=== PATIENT | female | born 1950 | race Caucasian/White ===

== ENCOUNTER 2017-10-10 17:09 | Emergency (ER) | payer OTHER ==
[~2017-10-10] VITALS: Ht 162.6 cm; Wt 72.6 kg
[2017-10-10] MEDS ORDERED: SYNTHROID150 MCG PO (17:17)
[2017-10-10 18:16] LABS: ABSOLUTE NEUTROPHILS 11.2 thou/uL (1.4-8.2); BASOPHILS 0.8 % (0.0-2.0); EOSINOPHILS 0.4 % (0.0-3.0); HEMATOCRIT 51.1 % (37.0-47.0); HEMOGLOBIN 17.6 gm/dL (12.0-15.0); LYMPHOCYTES 7.7 % (24.0-44.0); MCH 30.1 pg (26.0-34.0); MCHC 34.4 g/dL (28.0-37.0); MCV 87.5 fL (80.0-100.0); MONOCYTES 5.8 % (1.0-8.0); PLATELET COUNT 173 thou/uL (150-400); POLYS 85.3 % (36.0-66.0); RBC 5.84 mil/uL (4.20-5.00); WBC 13.2 thou/uL (4.0-11.0)
[2017-10-10 18:27] LABS: ANION GAP 10 mmol/L (7-16); BUN 18 mg/dL (7-18); CALCIUM 9.8 mg/dL (8.5-10.1); CHLORIDE 102 mmol/L (98-107); CO2 29 mmol/L (21-32); CREATININE 0.8 mg/dL (0.6-1.0); GLUCOSE 132 mg/dL (74-106); POTASSIUM 3.8 mmol/L (3.5-5.1); SODIUM 141 mmol/L (136-145)
[2017-10-10 18:35] LABS: LIPASE 113 U/L (73-393); SGOT 18 U/L (15-37); SGPT 26 U/L (30-65); TOTAL BILIRUBIN 0.7 mg/dL (<0.1-1.0); TOTAL PROTEIN 8.2 g/dL (6.4-8.2); TROPONIN-I < 0.04 ng/mL (<0.06)
[2017-10-10 19:10] LABS: URINE BILIRUBIN NEGATIVE (Negative); URINE BLOOD NEGATIVE (Negative); URINE CLARITY CLEAR; URINE COLOR YELLOW; URINE GLUCOSE-RANDOM* NEGATIVE (Negative); URINE KETONES 2+ (Negative); URINE LEUKOCYTES NEGATIVE (Negative); URINE NITRITE NEGATIVE (Negative); URINE PROTEIN (DIPSTICK) 2+ (Negative); URINE SPECIFIC GRAVITY 1.025 (1.005-1.035); URINE UROBILINOGEN 0.2 E.U./dl (0.2-1.0)
[2017-10-10 19:17] LABS: BACTERIA None Seen /HPF (None Seen); CASTS None Seen /LPF (None Seen); CRYSTALS None Seen /LPF (None Seen); MUCUS >6 Heavy strn/LPF (None Seen); SQUAMOUS 4-10 Moderate /LPF (0-3); URINE RBC 0-2 Rare /HPF (0-2); URINE WBC 0-5 Rare /HPF (0-5)
[2017-10-10] MEDS ORDERED: HYDROCODONE-AP1 EAC6 PO (21:05)
[2017-10-10] MEDS ORDERED: LEVSIN0.125 MG PO (21:05)
[2017-10-10] MEDS ORDERED: ONDANSETRON HCL4 M2 PO (21:05)
[2017-10-10 21:22] VITALS: BP 136/71
== END 2017-10-10 21:23 | disposition home or self-care (01) ==
LOC: ER 17:09
PROVIDERS: Physician Assistant
DX: R10.84 Generalized abdominal pain (principal); R10.13 Epigastric pain; R11.2 Nausea with vomiting, unspecified; F17.210 Nicotine dependence, cigarettes, uncomplicated

== ENCOUNTER → 2018-04-24 | Outpatient (CLI) | payer OTHER ==
[~2018-04-24] MED LIST: HYDROCODONE-AP1 EAC6 PO; LEVSIN0.125 MG PO; ONDANSETRON HCL4 M2 PO; SYNTHROID150 MCG PO
--- NOTE | ~2018-04-24 | 2DMMODE ---
[facility] [place] [address] 2 D/M-MODE ECHOCARDIOGRAM Name: CHRIS CASTRO Room #: REG [facility]#: [id number] Admission: 04/24/18 Attend Phys: Trevor Beaver MD Discharge: Date of : 50 Date of Service: 04/24/18 1254 Report #: [id number] THIS REPORT FOR: //name// APPROVED REPORT Study performed: 04/24/2018 11:51:48 EXAM: Comprehensive 2D, Doppler, and color-flow Echocardiogram Patient Location: Out-Patient Room #: Echo lab 2 Status: routine BSA: 1.85 HR: 75 bpm BP: 142/78 mmHg Rhythm: NSR Other Information Study Quality: Adequate Indications Palpitations 2D Dimensions RVDd: 45.25 mm IVSd: 11.53 (7-11mm) LVOT Diam: 20.39 (18-24mm) LVDd: 43.68 mm PWd: 12.47 (7-11mm) Ascending Ao: 30.58 (22-36mm) LVDs: 30.25 (25-40mm) Aortic Root: 33.97 mm IVC: 14.00 mm Volumes Left Atrial Volume (Systole) Single Plane 4CH: 41.99 mL Single Plane 2CH: 47.51 mL LA ESV Index: 27.00 mL/m2 Aortic Valve AoV Peak Abraham.: 1.42 m/s AO Peak Gr.: 8.09 mmHg LVOT Max P.30 mmHg LVOT Max V: 1.26 m/s MORENITA Vmax: 2.88 cm2 Mitral Valve E/A Ratio: 0.7 MV Decel. Time: 291.09 ms MV E Max Abraham.: 0.68 m/s [facility] [address] [place] [address] 2 D/M-MODE ECHOCARDIOGRAM Name: CHRIS CASTRO Room #: [facility]#: [id number] Admission: 04/24/18 Attend Phys: Trevor Beaver MD Discharge: Date of : 50 Date of Service: 04/24/18 1254 Report #: [id number] MV A Abraham.: 0.97 m/s MV PHT: 84.42 ms IVRT: 119.95 ms Pulmonary Valve PV Peak Abraham.: 1.00 m/s PV Peak Gr.: 3.99 mmHg Pulmonary Vein P Vein S: 0.52 m/s P Vein A: 0.25 m/s P Vein D: 0.35 m/s P Vein A Dur.: 110.7 msec P Vein S/D Ratio: 1.49 Tricuspid Valve TR Peak Abraham.: 2.52 m/s TR Peak Gr.: 25.33 mmHg PA Pressure: 30.00 mmHg Left Ventricle The left ventricle is normal size. There is normal LV segmental wall motion. Mild concentric left ventricular hypertrophy. The left ventricular systolic function is normal. The left ventricular ejection fraction is within the normal range. LVEF is 55-60%. Grade I - abnormal relaxation pattern. Right Ventricle Right ventricle is mildly dilated. The right ventricular systolic function is normal. Atria The left atrium size is normal. Right atrium is at the upper limits of normal. Aortic Valve The aortic valve is normal in structure. No aortic regurgitation is present. There is no aortic valvular stenosis. Mitral Valve The mitral valve is normal in structure. There is no mitral valve regurgitation noted. No evidence of mitral valve stenosis. Tricuspid Valve The tricuspid valve is normal in structure. There is trace tricuspid regurgitation. Estimated PAP 30 mmHg. There is no pulmonary hypertension. [employer] [facility] [address] [place] [address] 2 D/M-MODE ECHOCARDIOGRAM Name: CHRIS CASTRO Room #: REG [facility]#: [id number] Admission: 04/24/18 Attend Phys: Trevor Beaver MD Discharge: Date of : 50 Date of Service: 04/24/18 1254 Report #: [id number] The aortic root is normal in size. IVC is normal in size and collapses >50% with inspiration. Pericardium There is no pericardial effusion. <Conclusion> The left ventricle is normal size. Mild concentric left ventricular hypertrophy. The left ventricular systolic function is normal. Grade I - abnormal relaxation pattern. Right ventricle is mildly dilated. The right ventricular systolic function is normal. The left atrium size is normal. The aortic valve is normal in structure. The mitral valve is normal in structure. There is trace tricuspid regurgitation. Estimated PAP 30 mmHg. <ELECTRONICALLY SIGNED> By: Trevor Beaver MD 04/24/18 1254 1254 1254 Trevor Beaver MD /INF
== END ==
LOC: NUC 11:22
DX: R00.2 Palpitations (principal)

== ENCOUNTER 2019-08-18 13:14 | Inpatient (IN) | payer OTHER ==
[~2019-08-18] VITALS: Ht 162.6 cm; Wt 75.3 kg
[2019-08-18 13:15] VITALS: BP 141/73
[2019-08-18 15:59] LABS: HEMATOCRIT 46.1 % (37.0-47.0); MCHC 32.6 g/dL (28.0-37.0); MCV 85.7 fL (80.0-100.0); RBC 5.38 mil/uL (4.20-5.00); RDW 15.6 % (10.5-14.5); WBC 10.7 thou/uL (4.0-11.0)
[2019-08-18 16:09] LABS: CALCIUM 9.9 mg/dL (8.5-10.1); CREATININE 0.9 mg/dL (0.6-1.0); POTASSIUM 3.8 mmol/L (3.5-5.1)
[2019-08-18 17:24] VITALS: BP 126/79
[2019-08-18 17:39] LABS: BE(vivo) -3.7 mmol/L (-2 to +3); HCO3 20.8 mmol/L (22.0-26.0); PO2 VENOUS 32.1 mmHg (35.0-45.0)
[2019-08-18 18:29] VITALS: BP 143/80
[2019-08-18 18:31] VITALS: BP 133/88
[2019-08-18 18:40] VITALS: BP 139/88
[2019-08-18 20:30] VITALS: BP 129/64
[2019-08-19 01:23] LABS: URINE BILIRUBIN NEGATIVE (Negative); URINE BLOOD NEGATIVE (Negative); URINE CLARITY CLEAR; URINE COLOR YELLOW; URINE GLUCOSE-RANDOM* NEGATIVE (Negative); URINE KETONES TRACE (Negative); URINE LEUKOCYTES-REFLEX TRACE (Negative); URINE NITRITE-REFLEX NEGATIVE (Negative); URINE PROTEIN (DIPSTICK) TRACE (Negative); URINE SPECIFIC GRAVITY >= 1.030 (1.005-1.035); URINE UROBILINOGEN 0.2 E.U./dl (0.2-1.0)
[2019-08-19 04:50] VITALS: BP 127/66
--- NOTE | 2019-08-19 07:49 | NUR ---
PT ARRIVED ON UNIT FROM ER AT SHIFT CHANGE. ADMITTED WITH LEFT HIP FRACTURE. MORPHINE PROVIDING PAIN RELIEF. VOIDING PER BEDPAN. RESTING COMFORTABLY. NO NEEDS VOICED. CALL LIGHT WITHIN REACH. FREQUENT OBSERVATION.
[2019-08-19 08:28] VITALS: BP 156/86
--- NOTE | 2019-08-19 10:13 | NUR ---
PT RESTING IN BED ALERT XS 4. PT HAS REMAINED NPO. CALLED DR JOHNSON AND RECIEVED ORDERS TO START SYNTHROID AND GIVE MORPINE 4 MG PRN EVERY 3 HOURS NEEDED. PT TO HAVE SURGERY THIS AM WITH DR DOWELL. LEFT HIP FX.
--- NOTE | 2019-08-19 12:55 | NUR ---
PATIENT AT THIS TIME REMAINS IN SURGERY. FAMILY IN WAITING ROOM DR DOWELL DOING LEFT HIP PINNING.
--- NOTE | 2019-08-19 16:49 | NUR ---
PATIENT RETURNED AT 15:[address] DOWELL DID LEFT HIP MULTIPLE SCREW FIXATION. V.S. 98.0 18 84 139/65 90% 3L/NC. PT ALERT XS 4 STATES NO PAIN DRINKING SPRITE AND WATER. IS REGULAR DIET. AT BEDSIDE PT USING BEDPAN CONT OF B&B.
--- NOTE | 2019-08-19 16:57 | NUR ---
PT HAS IV FLUIDS INFUSING ORDERED.
[2019-08-19 17:46] VITALS: BP 139/65
[2019-08-19 19:50] VITALS: BP 119/63
[2019-08-20 05:20] VITALS: BP 129/87
[2019-08-20 07:54] VITALS: BP 136/82
--- NOTE | 2019-08-20 08:54 | NUR ---
PT LYING IN BED. VOIDING PER BEDPAN. LORTAB PROVIDING PAIN RELIEF. RESTING COMFORTABLY. NO NEEDS VOICED. CALL LIGHT WITHIN REACH. FREQUENT OBSERVATION.
--- NOTE | 2019-08-20 08:55 | HC ---
[facility] [place] [address] CONSULTATION Name: CHRIS CASTRO Room #: 437-P [facility] IN M.R.#: [id number] Admission: 08/18/19 Attend Phys: Alessandro Sams MD Discharge: Date of : 50 Report #: [id number] THIS REPORT FOR: cc: Alessandro Sams MD, Stanley P. MD Clymer, David J. MD ~ CC: Alessandro Sams DATE OF SERVICE: 08/19/2019 CHIEF COMPLAINT: Left femoral neck fracture. HISTORY OF PRESENT ILLNESS: This active and independent 68-year-old female fell several days ago at home on level ground. Since then, she has had some persistent left hip discomfort, but she has been active and ambulating at home. She elected to come in for x-rays and those films show a mildly impacted fracture of the left femoral neck fracture. She has no other apparent injuries. She was admitted for further treatment regarding this left hip injury. At the time of my evaluation last evening and again this morning, the patient states she is really having rather minimal left hip pain. She is able to move the hip about in bed without much difficulty or discomfort. She notes she did have some pain when she was standing and bearing weight and walking over the last few days. Those symptoms are rather minimal now that she is resting in bed. She denies any other areas of significant discomfort. Objectively, she is mildly heavy and mildly deconditioned, but otherwise appears generally healthy. She has good movement of the neck and back without discomfort. She has good movement of both upper extremities without discomfort. She has good movement of the right lower extremity at the hip, knee and ankle without discomfort. The left hip also reveals satisfactory alignment and surprisingly good range of motion with only minimal discomfort. There is no shortening or rotational malalignment and the hip seems clinically stable, although mildly uncomfortable. The left knee, lower leg, foot, and ankle appear to be normal. X-rays of the pelvis and left hip reveal a mildly impacted femoral neck fracture in slight valgus position. The rest of the bony architecture looks normal. There is only minimal degenerative change at the hip joint. IMPRESSION: We have discussed last night and again this morning her current situation and treatment options. I have explained that we might consider nonsurgical management as she is only mildly symptomatic and could protect the hip with a walker and limited weightbearing. We have discussed also the option of percutaneous screw stabilization or hip arthroplasty. The patient and her seemed to understand well. They feel they would not like to proceed with hip arthroplasty either with total hip nor hip hemiarthroplasty as they feel her symptoms are mild and manageable. On the other [place], [place] [address] CONSULTATION Name: CHRIS CASTRO Room #: 437-P [facility] IN M.R.#: [id number] Admission: 08/18/19 Attend Phys: Alessandro Sams MD Discharge: Date of : 50 Report #: [id number] concerned that I have explained the fracture might change or displace in the future even with protection. Given this, they would prefer to go ahead with percutaneous screw stabilization, hoping this will allow fracture healing. They understand that if the fracture should fail to unite or displace, then hemiarthroplasty in the future may still be necessary. The patient has discussed this with her family and they seem to be in agreement. They would like to go ahead with that surgery for left femoral neck percutaneous screw stabilization today on 08/19/2019. <ELECTRONICALLY SIGNED> By: Luke Moura MD 08/20/19 0855 1154 32 Luke Moura MD /nt
--- NOTE | 2019-08-20 08:55 | O ---
[facility] [place] [address] OPERATIVE REPORT Name: CHRIS CASTRO Room #: 437-P ADM IN M.R.#: [id number] Admission: 08/18/19 Attend Phys: Alessandro Sams MD Discharge: Date of : 50 Report #: [id number] THIS REPORT FOR: cc: Alessandro Sams MD, Stanley P. MD Clymer, David J. MD ~ CC: Alessandro Sams DATE OF SERVICE: 08/19/2019 PREOPERATIVE DIAGNOSIS: Fracture, left femoral neck. POSTOPERATIVE DIAGNOSIS: Fracture, left femoral neck. PROCEDURE: Percutaneous screw stabilization, left femoral neck fracture. SURGEON: Luke Moura MD INDICATIONS: This 68-year-old female fell several days ago injuring the left hip. She has been ambulating in the hip, but with discomfort. X-rays confirm a mildly impacted femoral neck fracture in slight valgus stable position. We discussed treatment options and she has elected to proceed with percutaneous screw stabilization. DESCRIPTION OF PROCEDURE: The patient was taken to the operating room where she was placed under general anesthesia. Prophylactic intravenous antibiotics were administered. The left hip and thigh were meticulously prepped and draped. She was positioned on the fracture table for C-arm visualization. The fracture appears to be in unchanged satisfactory position with slight valgus impaction. A small skin incision was made over the lateral aspect of the upper thigh. Three guidewires were placed into the femoral neck and low head region. Their position was assessed and felt to be satisfactory. Three 7.2 mm cannulated screws were then applied, bringing the tip of the screw up to about 10 mm below the subchondral bone. These appeared to have good purchase. AP and lateral views revealed satisfactory position of the fracture and position of screws. The wound was irrigated and closed using 2-0 Monocryl and julio in the skin. A sterile dressing was applied. The patient was awakened and returned to recovery room in good condition. <ELECTRONICALLY SIGNED> By: Luke Moura MD 08/20/19 0855 [id number] [id number] Luke Moura MD /nt
--- NOTE | 2019-08-20 14:05 | NUR ---
PT ADMITTED RELATED TO LEFT HIP FRACTURE S/P ORIF. CM REVIEWED CHART AND SPOKE WITH CARE TEAM. CM MET WITH PT AT BEDSIDE THIS DAY. PT IS A&O X4. CM ROLE INTRODCUED. PT INDICATED SHE LIVES IN A HOUSE WITH HER SPOUE WITH 4 STEPS TO ENTER AND NO STEPS INSIDE. PT INDICATED SHE HAS ALL NEEDS ON 1 LEVEL ONCE INSIDE. PT INDICATED SHE MIGHT HAVE A FWW FOR USE UPON DC BUT SPOUSE WAS GOING TO CHECK. PT INDICATED SHE DIDN'T THINK SHE'S NEED ANY HH OR OP PT UPON DC. CM TO FOLLOW INDICATED WITH DC PLANNING.
[2019-08-20 16:46] VITALS: BP 115/55
[2019-08-20 19:30] VITALS: BP 116/88
--- NOTE | 2019-08-20 20:39 | NUR ---
DRESSING TO LEFT HIP CHANGED INCISION HAS 11 STAPES AND INCISION LINE WELL APPROXAMATED.
[2019-08-21 04:40] VITALS: BP 144/77
--- NOTE | 2019-08-21 04:51 | NUR ---
PT C/O PAIN ON HER L HIP,MANAGED WITH MED.PT C/O OF CONSTIPATION AND ALSO WANTED MED TO HELP HER SLEEP.DR MURPHY STOPPED BY TO SEE PT,ORDER NOTED FOR MIRALAX AND MELATONIN,ORDER CARRIED OUT.PT UP WITH ASSIST X1 TO BSC.PT PROGRESSING TOWARDS DC GOAL.FALL PRECAUTIONS IN PLACE,CALL LIGHT WITHIN REACH.
[2019-08-21 07:56] VITALS: BP 124/75
--- NOTE | 2019-08-21 12:07 | NUR ---
ASSUMED CARE AT 07:52. PATIENT REPORTS PAIN MANAGED WITH MEDS ORDERED. PATIENT EXPRESSED CONCERNS ABOUT WANTING TO DISCHARGE HOME, STATED THAT SHE HAD PREVIOUSLY SPOKEN WITH HEALTHCARE ABOUT REHAB. PATIENT STATED SHE DIDN'T WANT TO BE IN REHAB FOR 3-4 WEEKS. DISCUSSED HOW [facility] WORKED AND THE NEED FOR EVALUATION PRIOR TO ACCEPTANCE TO REHAB. PATIENT WORKED WITH THERAPY. UP WITH MINIMAL ASSIST USING WALKER AND GAIT BELT. FALL PRECAUTIONS IN PLACE, CALLS FOR ASSIST APPROPRIATELY. DENIES FURTHER NEEDS AT THIS TIME.
--- NOTE | 2019-08-21 16:17 | NUR ---
CM FOLLOWED UP WITH PT AND SPOUSE AT BEDSIDE THIS AM. THEY INDICATED THAT THEY HAVE ALL RECOMMENDED DME FOR USE AT HOME. THEY INDICATED THAT THEY WERE RECEPTIVE TO OP THERAPY EITHER HERE AT [facility] OR ANOTHER LOCATION. CM NOTIFIED NURSE. [facility]THO DOC VISITED AND PT AND SPOUSE NOW INDICATING THAT THEY DON'T NEED ANY HH OR OP THERAPY UPON DC. TRYING TO CLARIFY WITH CARE TEAM.
--- NOTE | 2019-08-21 16:31 | NUR ---
ASSUMED PT AT 3:30 PM. A&OX4, SPOUSE AT BED SIDE AND ANXIOUS TO DC TODAY. DC'D PT FROM ORTHO. CASE MANAGEMENT IS AWARE AND ARE WORKING TO NOTIFIYING DR. HAQUE.
[2019-08-21] MEDS ORDERED: XARELTO10 MG PO (17:28)
[2019-08-21] MEDS ORDERED: HYDROCODON-ACE1 EAC7 PO (17:28)
[2019-08-21] MEDS ORDERED: MELATONIN5 M1 PO (17:28)
[2019-08-21 17:35] VITALS: BP 124/75
--- NOTE | 2019-08-21 18:39 | NUR ---
DC ORDERS RECIEVED EARLIER FROM . IV REMOVED L FA. DC INSTRUCTIONS, SCRIPTS AND F/U APPOINTMENTS REVIEWED WITH PT. VOLUNTEER ESCORTED PT TO MAIN ENTRANCE
== END 2019-08-21 18:21 | disposition home or self-care (01) | DRG 482 ==
LOC: ER 13:14 → 4S 17:16 → EROBS 17:16 → 4S 18:38 → ENTRNSPT 08-21 18:04 → 4S 08-21 18:21
PROVIDERS: Nurse Practitioner; ADMIT Internal Medicine
PROC: 0QH734Z Insertion of Internal Fixation Device into Left Upper Femur, Percutaneous Approach (ICD-10-PCS; principal; 2019-08-19)
DX: S72.002A Fracture of unspecified part of neck of left femur, initial encounter for closed fracture (principal); E03.9 Hypothyroidism, unspecified; W18.39XA Other fall on same level, initial encounter; F17.210 Nicotine dependence, cigarettes, uncomplicated; Z82.3 Family history of stroke; G89.18 Other acute postprocedural pain; Y93.89 Activity, other specified; Y92.89 Other specified places as the place of occurrence of the external cause; Y99.8 Other external cause status; Z79.899 Other long term (current) drug therapy
CPT/HCPCS: 10102; 50010; 50101; 50386; 51412; 51538; 52304; 53400; 56525; 57092; 62110; 62900; 70005

== ENCOUNTER 2019-08-26 13:36 | Emergency (ER) | payer OTHER ==
[~2019-08-26] VITALS: Ht 162.6 cm; Wt 75.3 kg
[~2019-08-26 13:36] MED LIST changes: +HYDROCODON-ACE1 EAC7 PO; +MELATONIN5 M1 PO; +XARELTO10 MG PO
[2019-08-26 14:05] LABS: BASOPHILS 0.9 % (0.0-2.0); EOSINOPHILS 0.8 % (0.0-3.0); HEMATOCRIT 43.4 % (37.0-47.0); HEMOGLOBIN 13.8 gm/dL (12.0-15.0); LYMPHOCYTES 12.1 % (24.0-44.0); MCH 27.4 pg (26.0-34.0); MCHC 31.9 g/dL (28.0-37.0); MCV 85.9 fL (80.0-100.0); MONOCYTES 6.3 % (1.0-8.0); PLATELET COUNT 233 thou/uL (150-400); POLYS 79.9 % (36.0-66.0); RBC 5.05 mil/uL (4.20-5.00); RDW 15.4 % (10.5-14.5); WBC 11.3 thou/uL (4.0-11.0)
[2019-08-26 14:14] LABS: ANION GAP 8 mmol/L (7-16); BUN 18 mg/dL (7-18); CALCIUM 10.3 mg/dL (8.5-10.1); CHLORIDE 102 mmol/L (98-107); CO2 29 mmol/L (21-32); CREATININE 0.9 mg/dL (0.6-1.0); GLUCOSE 178 mg/dL (74-106); SODIUM 139 mmol/L (136-145)
[2019-08-26 14:24] LABS: ALBUMIN 3.6 g/dL (3.4-5.0); SGOT 48 U/L (15-37); SGPT 82 U/L (30-65); TOTAL BILIRUBIN 0.9 mg/dL (<0.1-1.0); TOTAL PROTEIN 7.7 g/dL (6.4-8.2); TROPONIN-I <0.06 ng/mL (<0.06)
[2019-08-26 16:02] LABS: INR 1.1; PROTIME 11.4 Seconds (9.3-11.4)
[2019-08-26 16:25] VITALS: BP 139/66
--- NOTE | 2019-08-27 08:58 | EKG ---
[facility] [place] [address] ELECTROCARDIOGRAM REPORT Name: CHRIS CASTRO Room #: DEP [facility]#: [id number] Admission: 08/26/19 Attend Phys: Discharge: 08/26/19 Date of : 50 Report #: [id number] THIS REPORT FOR: cc: Alessandro Sams MD, Stanley P. MD Couchonnal, Luis F. 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
== END 2019-08-26 16:20 | disposition home or self-care (01) ==
LOC: ER 13:36
PROVIDERS: Physician Assistant
DX: R55 Syncope and collapse (principal); R61 Generalized hyperhidrosis; F17.210 Nicotine dependence, cigarettes, uncomplicated; Z79.899 Other long term (current) drug therapy; Z98.890 Other specified postprocedural states

== ENCOUNTER 2019-09-06 19:24 | Emergency (ER) | payer OTHER ==
[~2019-09-06] VITALS: Ht 162.6 cm; Wt 78.0 kg
[2019-09-06 20:22] LABS: ABSOLUTE NEUTROPHILS 8.6 thou/uL (1.4-8.2); BASOPHILS 0.7 % (0.0-2.0); EOSINOPHILS 0.6 % (0.0-3.0); HEMATOCRIT 43.2 % (37.0-47.0); MCH 28.1 pg (26.0-34.0); MCHC 32.5 g/dL (28.0-37.0); MCV 86.3 fL (80.0-100.0); MONOCYTES 6.3 % (1.0-8.0); PLATELET COUNT 230 thou/uL (150-400); POLYS 77.4 % (36.0-66.0); RDW 15.2 % (10.5-14.5); WBC 11.1 thou/uL (4.0-11.0)
[2019-09-06 20:23] LABS: CALCIUM 9.8 mg/dL (8.5-10.1); CREATININE 1.4 mg/dL (0.6-1.0); POTASSIUM 4.2 mmol/L (3.5-5.1)
[2019-09-06 20:27] LABS: URINE BILIRUBIN NEGATIVE (Negative); URINE BLOOD TRACE (Negative); URINE CLARITY SL CLOUDY; URINE COLOR YELLOW; URINE GLUCOSE-RANDOM* NEGATIVE (Negative); URINE KETONES TRACE (Negative); URINE LEUKOCYTES-REFLEX TRACE (Negative); URINE NITRITE-REFLEX NEGATIVE (Negative); URINE PROTEIN (DIPSTICK) TRACE (Negative); URINE SPECIFIC GRAVITY >= 1.030 (1.005-1.035); URINE UROBILINOGEN 0.2 E.U./dl (0.2-1.0)
[2019-09-06 20:29] LABS: ALBUMIN 3.7 g/dL (3.4-5.0); TOTAL BILIRUBIN 0.6 mg/dL (<0.1-1.0); TOTAL PROTEIN 7.4 g/dL (6.4-8.2)
[2019-09-06] MEDS ORDERED: LEVO-T100 MCG PO (21:29)
[2019-09-06 22:34] VITALS: BP 199/90
== END 2019-09-06 22:37 | disposition short-term general hospital (02) ==
LOC: ER 19:24
PROVIDERS: Emergency Medicine
DX: N20.1 Calculus of ureter (principal); N13.8 Other obstructive and reflux uropathy; R11.2 Nausea with vomiting, unspecified; F17.210 Nicotine dependence, cigarettes, uncomplicated; Z79.899 Other long term (current) drug therapy; Z98.890 Other specified postprocedural states

== ENCOUNTER 2020-06-24 12:42 | Emergency (ER) | payer OTHER ==
[~2020-06-24] VITALS: Ht 157.5 cm; Wt 61.7 kg
[~2020-06-24 12:42] MED LIST changes: +LEVO-T100 MCG PO
[2020-06-24] MEDS ORDERED: HYDROCODON-ACE1 EAC7 PO (14:32)
[2020-06-24 15:36] VITALS: BP 149/64
== END 2020-06-24 15:36 | disposition home or self-care (01) ==
LOC: ER 12:42
DX: S42.211A Unspecified displaced fracture of surgical neck of right humerus, initial encounter for closed fracture (principal); S52.124A Nondisplaced fracture of head of right radius, initial encounter for closed fracture; F17.210 Nicotine dependence, cigarettes, uncomplicated; Z98.890 Other specified postprocedural states; Z79.899 Other long term (current) drug therapy; W00.0XXA Fall on same level due to ice and snow, initial encounter; Y93.89 Activity, other specified; Y92.89 Other specified places as the place of occurrence of the external cause; Y99.8 Other external cause status

== ENCOUNTER 2021-04-28 11:09 | Emergency (ER) | payer OTHER ==
[~2021-04-28] VITALS: Ht 162.6 cm; Wt 70.3 kg
[2021-04-28 11:20] VITALS: BP 187/84
[2021-04-28 11:45] LABS: URINE BILIRUBIN NEGATIVE (Negative); URINE BLOOD NEGATIVE (Negative); URINE CLARITY CLEAR; URINE COLOR YELLOW; URINE GLUCOSE-RANDOM* NEGATIVE (Negative); URINE KETONES NEGATIVE (Negative); URINE NITRITE-REFLEX NEGATIVE (Negative); URINE PROTEIN (DIPSTICK) NEGATIVE (Negative); URINE UROBILINOGEN 0.2 E.U./dl (0.2-1.0)
[2021-04-28 11:49] LABS: URINE LEUKOCYTES-REFLEX 3+ (Negative)
[2021-04-28 12:10] LABS: ABSOLUTE NEUTROPHILS 5.6 thou/uL (1.4-8.2); BASOPHILS 0.9 % (0.0-2.0); EOSINOPHILS 0.3 % (0.0-3.0); HEMATOCRIT 42.5 % (37.0-47.0); HEMOGLOBIN 13.9 gm/dL (12.0-15.0); LYMPHOCYTES 14.7 % (24.0-44.0); MCH 28.9 pg (26.0-34.0); MCHC 32.7 g/dL (28.0-37.0); MCV 88.3 fL (80.0-100.0); MONOCYTES 6.1 % (1.0-8.0); PLATELET COUNT 192 thou/uL (150-400); RBC 4.81 mil/uL (4.20-5.00); RDW 14.1 % (10.5-14.5); WBC 7.1 thou/uL (4.0-11.0)
[2021-04-28 12:12] LABS: CREATININE 0.7 mg/dL (0.6-1.0)
[2021-04-28 13:16] LABS: CASTS None Seen /LPF (None Seen); MUCUS 0-3 Light strn/LPF (None Seen); SQUAMOUS >10 Many /LPF (0-3)
[2021-04-28 13:17] LABS: BACTERIA-REFLEX 1-9 Few /HPF (None Seen); CRYSTALS None Seen /LPF (None Seen); URINE RBC None Seen /HPF (NONE SEEN); URINE WBC-REFLEX 0-5 Rare /HPF (0-5)
[2021-04-28] MEDS ORDERED: VISTARIL 25 MG25 M1 PO (13:29)
--- NOTE | 2021-04-28 13:58 | EKG ---
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: ISIDRO : 1950 Requested By: Saw Bueno Order Number: [id number] MD: Valente Narayanan Measurements Intervals Rew Rate: 89 P: 47 [place]: 152 QRS: -87 QRSD: 100 T: 53 QT: 391 QTc: 476 Interpretive Statements Sinus rhythm Probable left atrial enlargement Inferior infarct, old Baseline wander in lead(s) I,III,aVR,aVL Compared to ECG 08/26/2019 13:51:54 No significant changes Electronically Signed On 04-28-2021 13:58:45 COLLETER by Valente Narayanan [email or web address] <ELECTRONICALLY SIGNED> By: Valente Narayanan MD, [facility] 04/28/21 1358 26 26 Valente Narayanan MD, FACC /EPI
== END 2021-04-28 13:49 | disposition home or self-care (01) ==
LOC: ER 11:09
PROVIDERS: Nurse Practitioner; Student in an Organized Health Care Education/Training Program
DX: F41.9 Anxiety disorder, unspecified (principal); F17.210 Nicotine dependence, cigarettes, uncomplicated; Z98.890 Other specified postprocedural states; Z79.891 Long term (current) use of opiate analgesic; Z79.1 Long term (current) use of non-steroidal anti-inflammatories (NSAID); Z79.899 Other long term (current) drug therapy